=== PATIENT | male | born 2000 | race Caucasian/White ===

== ENCOUNTER → 2021-08-02 10:02 | Outpatient (CLI) | payer BC, SELFPAY ==
--- NOTE | 2021-08-02 10:17 | XR_ITS ---
PROCEDURE: XR CHEST 2V CLINICAL HISTORY: CP,SOB COMPARISON: No exams were available for comparison FINDINGS: The cardiomediastinal silhouette and pulmonary vascularity are within normal limits. The lungs are clear without infiltrates, suspicious nodules, or pleural effusions. No acute bony abnormalities. IMPRESSION: No acute findings. Dictated by: Stephan Velázquez MD 08/03/2021 07:25 Stephan Velázquez MD in [facility] 08/03/2021 07:25
== END ==
PROVIDERS: PCP Family Medicine; Visit Provider Family Medicine
DX: R07.9 Chest pain, unspecified (principal); R06.02 Shortness of breath
CPT/HCPCS: 71046

== ENCOUNTER → 2021-11-05 11:51 | Outpatient (CLI) | payer BC, SELFPAY | PROVIDERS: Visit Provider Nurse Practitioner | DX: U07.1 COVID-19 (principal) | CPT/HCPCS: C9803; U0003; U0005 ==